=== PATIENT | male | born 1935 | race Hispanic/Latino ===

== ENCOUNTER 2020-05-16 11:56 | Emergency (ER) | payer MEDICARE, MEDICAID ==
[~2020-05-16] VITALS: Ht 165.1 cm; Wt 54.5 kg
[2020-05-16 12:32] LABS: HEMATOCRIT 45.8 % (39.0-50.0); HEMOGLOBIN 14.6 g/dl (14.0-18.0); IMMATURE GRANULOCYTES 0.8 % (0.0-5.0); MEAN CELL VOLUME 93.3 fL CALC (80.0-100.0); MEAN CORPUSCULAR HGB 29.7 pG CALC (26.0-32.0); MEAN CORPUSCULAR HGB CONC 31.9 g/dL CAL (32.0-36.0); NEUT# 7.1 thou/uL (1.82-7.42); RED BLOOD COUNT 4.91 mill/uL (4.70-6.10); RED CELL DISTRI WIDTH 14.7 % (11.5-15.5)
[2020-05-16 12:54] LABS: ANION GAP 10 (6-22 (CALC)); BUN 19 mg/dL (8-23); BUN/CREATININE RATIO 18 (12-20 (CALC)); CARBON DIOXIDE 27 mmol/l (22-30); CHLORIDE 106 mmol/l (95-108); GFR > 60 ML/MIN (>=60 (CALC)); GFR FOR AFR.AMER. > 60 ML/MIN (>=60 (CALC)); POTASSIUM 4.3 mmol/l (3.5-5.1); SODIUM 138 mmol/l (137-146)
[2020-05-16] MEDS ORDERED: HYDROCO/APAP1 TA9 PO (16:51)
[2020-05-16] MEDS ORDERED: CEPHALEXIN500 M1 PO (16:55)
[2020-05-16 17:25] VITALS: BP 144/67
== END 2020-05-16 17:25 | disposition home or self-care (01) ==
LOC: ED 11:56
PROVIDERS: Family Medicine
PROC: 0HQ1XZZ Repair Face Skin, External Approach (ICD-10-PCS; principal; 2020-05-16)
PROC: 0HQEXZZ Repair Left Lower Arm Skin, External Approach (ICD-10-PCS; 2020-05-16)
PROC: 2W3BXYZ Immobilization of Left Upper Arm using Other Device (ICD-10-PCS; 2020-05-16)
DX: S42.292A Other displaced fracture of upper end of left humerus, initial encounter for closed fracture (principal); S01.81XA Laceration without foreign body of other part of head, initial encounter; S51.012A Laceration without foreign body of left elbow, initial encounter; I10 Essential (primary) hypertension; W01.0XXA Fall on same level from slipping, tripping and stumbling without subsequent striking against object, initial encounter; Y93.89 Activity, other specified; Y92.009 Unspecified place in unspecified non-institutional (private) residence as the place of occurrence of the external cause